=== PATIENT | female | born 1960 | race Caucasian/White ===

== ENCOUNTER 2017-11-05 20:36 | Emergency (ER) | payer OTHER ==
[2017-11-06] MEDS: morphine 4 MG/ML VIAL IM (06:56)
[2017-11-06] MEDS: ONDANSETRON (ODT) 4 MG TAB ODT (06:56)
[2017-11-06] MEDS: KETOROLAC 30 MG INJ IM (06:56)
== END 2017-11-06 07:37 | disposition home or self-care (01) ==
LOC: FTE 20:36
DX: M54.5 Low back pain (principal); E11.9 Type 2 diabetes mellitus without complications; I10 Essential (primary) hypertension; Z79.84 Long term (current) use of oral hypoglycemic drugs
CPT/HCPCS: 96372; 99284-25